=== PATIENT | female | born 1965 ===

== ENCOUNTER → 2018-10-25 21:07 | Outpatient (REF) | payer OTHER, SELFPAY ==
[2018-10-28 17:49] LABS: Progesterone < 0.5 ng/mL
[2018-10-30 16:59] LABS: Estrogen 72.7 pg/mL
== END ==
LOC: LAB 21:07
PROVIDERS: Visit Provider Naturopath
DX: N95.1 Menopausal and female climacteric states (principal); R68.82 Decreased libido; R63.5 Abnormal weight gain; Z90.710 Acquired absence of both cervix and uterus
CPT/HCPCS: 36415; 82672; 84144; 84270; 84402; 84403